=== PATIENT | male | born 1985 | race Caucasian/White ===

== ENCOUNTER 2018-04-20 12:55 | Emergency (ER) | payer OTHER ==
[~2018-04-20] VITALS: Ht 170.2 cm; Wt 72.6 kg
== END 2018-04-20 15:40 | disposition home or self-care (01) ==
LOC: ER 12:55
DX: J35.01 Chronic tonsillitis (principal)

== ENCOUNTER → 2018-08-24 | Day surgery (SDC) | payer OTHER | END | disposition home or self-care (01) | LOC: ADM 08-22 10:30 → CIR.AMB 10:30 | DX: S46.811A Strain of other muscles, fascia and tendons at shoulder and upper arm level, right arm, initial encounter (principal) ==

== ENCOUNTER 2018-12-29 11:06 | Emergency (ER) | payer OTHER ==
[~2018-12-29] VITALS: Ht 170.2 cm; Wt 73.9 kg
[2018-12-29] MEDS ORDERED: DUI500 PO (12:13)
== END 2018-12-29 12:23 | disposition home or self-care (01) ==
LOC: ER 11:06
DX: S91.322A Laceration with foreign body, left foot, initial encounter (principal); W45.8XXA Other foreign body or object entering through skin, initial encounter; Y93.89 Activity, other specified; Y92.89 Other specified places as the place of occurrence of the external cause; Y99.8 Other external cause status

== ENCOUNTER 2019-01-08 07:57 | Emergency (ER) | payer OTHER ==
[~2019-01-08] VITALS: Ht 170.2 cm; Wt 73.9 kg
[~2019-01-08 07:57] MED LIST: DUI500 PO
== END 2019-01-08 09:22 | disposition home or self-care (01) ==
LOC: ER 07:57
DX: Z48.02 Encounter for removal of sutures (principal)

== ENCOUNTER → 2019-01-13 | Emergency (ER) | payer OTHER ==
[~2019-01-13] VITALS: Ht 170.2 cm; Wt 74.4 kg
== END | disposition home or self-care (01) ==
LOC: ER 14:16
DX: T79.8XXA Other early complications of trauma, initial encounter (principal); L08.89 Other specified local infections of the skin and subcutaneous tissue

== ENCOUNTER 2024-05-30 17:39 | Emergency (ER) | payer OTHER ==
[~2024-05-30] VITALS: Ht 170.2 cm; Wt 74.8 kg
[2024-05-30] MEDS ORDERED: ACETAMINOPHEN 500 MG GEL..CAP PO ONE (17:49)
[2024-05-30] MEDS ORDERED: AZITHROMYCIN 500 MG TABLET PO ONE ×2 (19:00→19:21)
[2024-05-30] MEDS ORDERED: 0.9 % SODIUM CHLORIDE 1,000 ML IV ONE (19:00)
[2024-05-30 20:32] LABS: HEMATOCRIT 41.4 % (39.0-48.0); HEMOGLOBIN 14.7 g/dL (13-16.00); MEAN CELL VOLUME 89.8 fL (80.0-100.00); MEAN CORPUSCULAR HEMOGLOBIN 31.8 pg (27.00-32.0); MEAN CORPUSCULAR HGB CONC 35.4 g/dl (32.0-36.0); PLATELET COUNT 147 K/uL (150-450); RED BLOOD COUNT 4.62 M/uL (4.00-6.00); RED CELL DISTRIBUTION WIDTH 13.6 % (11.5-14.5)
[2024-05-30 20:44] LABS: ALBUMIN 4.1 gm/dL (3.4-5.0); BILIRUBIN TOTAL 0.82 mg/dL (0.3-1.2); CALCIUM 8.9 mg/dL (8.5-10.1); CREATININE SERUM 1.12 mg/dL (0.70-1.30); GFR 72.99; POTASSIUM 3.71 mEq/L (3.5-5.1); TOTAL PROTEIN 7.1 gm/dL (6.4-8.2)
== END 2024-05-30 21:09 | disposition home or self-care (01) ==
LOC: ER 17:41
PROVIDERS: General Practice
DX: B34.9 Viral infection, unspecified (principal); R53.81 Other malaise; Z20.822 Contact with and (suspected) exposure to COVID-19

== ENCOUNTER 2024-06-04 14:47 | Emergency (ER) | payer OTHER ==
[~2024-06-04] VITALS: Ht 170.2 cm; Wt 75.7 kg
[2024-06-04] MEDS ORDERED: 0.9 % SODIUM CHLORIDE 500 ML IV STA (17:12)
[2024-06-04 17:54] LABS: HEMATOCRIT 43.5 % (39.0-48.0); HEMOGLOBIN 15.2 g/dL (13-16.00); MEAN CELL VOLUME 88.5 fL (80.0-100.00); MEAN CORPUSCULAR HEMOGLOBIN 30.9 pg (27.00-32.0); RED BLOOD COUNT 4.92 M/uL (4.00-6.00); RED CELL DISTRIBUTION WIDTH 13.5 % (11.5-14.5)
[2024-06-04 18:10] LABS: INR 1.03; PARTIAL THROMBOPLASTIN TIME 31.6 SECONDS (22.0-34.0); PROTHROMBIN TIME 11.2 SECONDS (9.0-11.5)
[2024-06-04 18:15] LABS: ALBUMIN 4.1 gm/dL (3.4-5.0); BILIRUBIN TOTAL 0.75 mg/dL (0.3-1.2); CALCIUM 9.1 mg/dL (8.5-10.1); CREATININE SERUM 1.07 mg/dL (0.70-1.30); GFR 76.94; GLOBULINA 3.7 G/DL (2.4-3.5); POTASSIUM 4.01 mEq/L (3.5-5.1); TOTAL PROTEIN 7.8 gm/dL (6.4-8.2)
[2024-06-04 18:33] LABS: PLATELET COUNT 70 K/uL (150-450)
== END 2024-06-04 19:13 | disposition home or self-care (01) ==
LOC: ER 14:49
PROVIDERS: General Practice
DX: A90 Dengue fever [classical dengue] (principal)